=== PATIENT | male | born 1935 | race Caucasian/White ===

== ENCOUNTER 2017-12-02 09:17 | Outpatient (CLI) | payer MEDICARE, OTHER ==
[~2017-12-02] VITALS: Ht 182.9 cm; Wt 73.0 kg
[2017-12-02 09:27] VITALS: BP 146/67
[2017-12-02 10:13] LABS: BASOPHILS % (AUTO) 0 % (0-10); EOSINOPHILS # (AUTO) 0.1 10^3/uL (0.0-0.3); EOSINOPHILS % (AUTO) 1 % (0-10); HEMATOCRIT 43 % (40-54); HEMOGLOBIN 14.8 G/DL (13.3-17.7); LYMPHOCYTES # (AUTO) 1.5 X 10^3 (1.0-4.0); LYMPHOCYTES % (AUTO) 22 % (12-44); MEAN CORPUSCULAR HEMOGLOBIN 31 PG (25-34); MEAN CORPUSCULAR HGB CONC 35 G/DL (32-36); MEAN CORPUSCULAR VOLUME 88 FL (80-99); MEAN PLATELET VOLUME 9.6 FL (7.4-10.4); MONOCYTES # (AUTO) 0.6 X 10^3 (0.0-1.0); MONOCYTES % (AUTO) 9 % (0-12); NEUTROPHILS # (AUTO) 4.8 X 10^3 (1.8-7.8); NEUTROPHILS % (AUTO) 68 % (42-75); PLATELET COUNT 303 10^3/uL (130-400); RED BLOOD COUNT 4.84 10^6/uL (4.35-5.85); RED CELL DISTRIBUTION WIDTH 14.4 % (10.0-14.5)
[2017-12-02] MEDS ORDERED: MV M PO (11:57)
[2017-12-02] MEDS ORDERED: AMLO10TA6 PO (11:57)
[2017-12-02] MEDS ORDERED: WARF-48 PO (11:57)
[2017-12-02] MEDS ORDERED: SIMV10TA3 PO (11:57)
[2017-12-02] MEDS ORDERED: HYDR-3922 PO (11:57)
[2017-12-02] MEDS ORDERED: OXYC-464 PO (11:57)
[2017-12-02] MEDS ORDERED: CHOL500044 PO (11:57)
[2017-12-02] MEDS ORDERED: IBUP-1780 PO (11:57)
[2017-12-02] MEDS ORDERED: TIZA4TAB3 PO (11:57)
[2017-12-02] MEDS ORDERED: CLOP75TA69 PO (11:57)
[2017-12-02] MEDS ORDERED: GABA-488 PO (11:57)
[2017-12-02] MEDS ORDERED: RANI-515 PO (11:57)
== END 2017-12-02 10:05 | disposition home or self-care (01) ==
LOC: PREOP 09:17
PROVIDERS: ATTEND Orthopaedic Surgery
DX: Z01.812 Encounter for preprocedural laboratory examination (principal); Z11.2 Encounter for screening for other bacterial diseases; M48.061 Spinal stenosis, lumbar region without neurogenic claudication; Z22.322 Carrier or suspected carrier of Methicillin resistant Staphylococcus aureus
CPT/HCPCS: 36415; 85025; 86850; 86900; 86901; 87081

== ENCOUNTER 2017-12-08 07:36 | Inpatient (IN) | payer MEDICARE, OTHER ==
[~2017-12-08] VITALS: Ht 182.9 cm; Wt 73.0 kg
[~2017-12-08 07:36] MED LIST: AMLO10TA6 PO; CHOL500044 PO; CLOP75TA69 PO; GABA-488 PO; HYDR-3922 PO; IBUP-1780 PO; MV M PO; OXYC-464 PO; RANI-515 PO; SIMV10TA3 PO; TIZA4TAB3 PO; WARF-48 PO
[2017-12-08 07:40] VITALS: BP 167/71
[2017-12-08] MEDS ORDERED: ceFAZolin 2 GM IV Premixed 50 ML IV ONE (08:30)
[2017-12-08] MEDS: LACTATED RINGERS 1,000 ML IV PRN ×2 (08:46→11:12)
[2017-12-08] MEDS ORDERED: FAMOTIDINE 20MG/2ML IV (PEPCID) ONE (09:01)
[2017-12-08] MEDS ORDERED: FAMOTIDINE 20MG/2ML IV (PEPCID) IV ONE (09:15)
[2017-12-08] MEDS ORDERED: fentaNYL INJECTION 100 MCG/2 ML AMP ONE (09:18)
[2017-12-08] MEDS ORDERED: NS (IVPB) 50 ML ONE (09:29)
[2017-12-08] MEDS ORDERED: ONDANSETRON 4 MG/2 ML (SDV) Z0FRAN ONE (09:36)
[2017-12-08] MEDS ORDERED: LIDOCAINE PF 2% 2 ML (XYLOCAINE) VIAL ONE (09:36)
[2017-12-08] MEDS ORDERED: DEXMEDETOMIDINE 200 MCG/2 ML (PRECEDEX) VIAL IV ONE (09:36)
[2017-12-08] MEDS ORDERED: SEVOFLURANE (ULTANE) 15 ML INHAL SOLN ONE ×2 (09:36→13:36)
[2017-12-08] MEDS ORDERED: proPOfol 200 MG/20 ML (DIPRIVAN) VIAL IV ONE (09:36)
[2017-12-08] MEDS ORDERED: DEXAMETHASONE 10 MG/ML (DECADRON) 1 ML VIAL ONE (09:36)
[2017-12-08] MEDS ORDERED: NEO/POLY/BAC (NEOSPORIN) OINT 15 GM TUBE ONE (09:41)
[2017-12-08] MEDS ORDERED: BUP/EPI 0.5% 1:200,000 (SENSORCAINE) 30 ML VIAL ONE (09:41)
[2017-12-08] MEDS ORDERED: VANCOMYCIN 1000 MG/VIAL ONE (09:41)
[2017-12-08] MEDS ORDERED: ROCURONIUM 10 MG/ML 5 ML SYRINGE IV ONE (09:58)
[2017-12-08] MEDS ORDERED: GLYCOPYRROLATE 0.2 MG/ML (ROBINUL) 2 ML VIAL ONE ×3 (10:41→13:36)
[2017-12-08] MEDS ORDERED: BACITRACIN 100,000 UNIT/NS 1000 ML POUR BOTTLE IR ONE ×2 (10:45)
[2017-12-08] MEDS ORDERED: TRANEXAMIC ACID 100 MG/ML 10 ML INJECTION IV ONE (10:52)
[2017-12-08] MEDS ORDERED: NEOSTIGMINE 1 MG/ML 5 ML SYRINGE ONE (13:36)
[2017-12-08] MEDS ORDERED: CYCLOBENZAPRINE 10 MG (FLEXERIL) TAB PO PRN (13:45)
[2017-12-08] MEDS ORDERED: BISACODYL 10 MG SUPP (DULCOLAX) PR PRN (13:45)
[2017-12-08] MEDS ORDERED: METOCLOPRAMIDE 10 MG (REGLAN) TAB PO PRN (13:45)
[2017-12-08] MEDS ORDERED: METOCLOPRAMIDE INJ 10 MG/2 ML (REGLAN) IV PRN (13:45)
[2017-12-08] MEDS ORDERED: ONDANSETRON 4 MG/2 ML (SDV) Z0FRAN IV PRN (13:45)
[2017-12-08] MEDS ORDERED: BISACODYL 5 MG (DULCOLAX) TABLET PO PRN (13:45)
[2017-12-08] MEDS ORDERED: ACETAMINOPHEN 325 MG TABLET PO PRN (13:45)
[2017-12-08] MEDS ORDERED: morphine INJ 10 MG/ML 1ML (SYR OR VIAL) IVP ONE (14:00)
[2017-12-08] MEDS ORDERED: ONDANSETRON 4 MG/2 ML (SDV) Z0FRAN IVP PRN (14:00)
[2017-12-08] MEDS ORDERED: NS IV 1000 ML 1,000 ML ONE (15:05)
[2017-12-08] MEDS: NS IV 1000 ML 1,000 ML IV SCH (15:12)
[2017-12-08] MEDS: fentaNYL INJECTION 100 MCG/2 ML AMP IVP PRN ×2 (15:13→18:07)
--- NOTE | 2017-12-08 15:29 | OPERATIVE REPORT ---
DATE OF SERVICE: 12/08/2017 SURGEON: Filemon Scott DO ARCHITECTURAL REPRESENTATIVE: MATEUSZ Singh. This is a medically necessary procedure. Assistance was necessary for retraction of vital neurovascular structures. Without an assistant auditor, the procedure would not be possible. PREOPERATIVE DIAGNOSES: 1. Lumbar radiculopathy. 2. Lumbar spinal stenosis (peroneal, bony, subluxation). 3. Lumbar spondylolisthesis L2-3. 4. Adjacent segment disease. POSTOPERATIVE DIAGNOSES: 1. Lumbar radiculopathy. 2. Lumbar spinal stenosis (peroneal, bony, subluxation). 3. Lumbar spondylolisthesis L2-3. 4. Adjacent segment disease. PROCEDURE PERFORMED: 1. L2-3 direct lateral interbody lumbar fusion. 2. Application of titanium cage L2-3. 3. Application of posterior instrumentation L2 through L4 posterior spinal fusion L2-3. 4. Removal of hardware. 5. Exploration of fusion. 6. Complete left facetectomy. 7. Use of human Allograft for spine. 8. Use of local bone autograft. COMPLICATIONS: None. SPECIMEN SENT: None. DRAIN PLACED: Hemovac. ANESTHESIA: General endotracheal anesthesia with local anesthetic. ESTIMATED BLOOD LOSS: Minimal. HISTORY OF PRESENT ILLNESS: The patient is a very pleasant 82-year-old gentleman who presented to me with radiating left lower extremity pain. MRI demonstrated severe adjacent segment disease above and apparently fused, L3-L4, L4-L5. He did wish to proceed with operative intervention after failing conservative measures. DESCRIPTION OF PROCEDURE: The patient was identified by name on wrist band in the preoperative holding area. His operative site was signed, consent was signed. SCDs were placed. Neuromonitor was hooked up and antibiotics were started. He was taken to the operating theater and placed under general endotracheal tube anesthesia, transferred to the operating room table in the lateral position with the left side up and secured to the table and prepped and draped in a sterile fashion for a formal timeout. An incision was then made over the L2-3 disk space. I proceeded with standard lateral retroperitoneal approach to the spine documenting invasive tubular retractor to the midpoint of the L2-3 disk space. I the psoas muscles and performed an annulotomy and I then performed a complete diskectomy at L2-3. I sized and chose the appropriate titanium interbody cage packed with an allograft. I seated it in the midline position. At this point, I maintained hemostasis and I closed the wound in the usual layered fashion utilizing 0 Vicryl followed by 2-0 Vicryl, followed by running 3-0 subcuticular stitch. I applied dressings, awakened, placed the patient in the prone position on a radiolucent Akil table. I prepped and draped the patient in usual sterile fashion. I then made a midline incision over the old scar. I dissected my way through robust scar tissue, which made the process quite difficult to expose the existing hardware from L3, L4 and L5. I removed the set screws as well as the rods. I did reuse the set screws. I then placed pedicle screws bilaterally in L2. I tested with EMG neuromonitoring. The screws were in good position. I then replaced the rods with longer rods. I did an exploration of fusion and there was robust bone on the left and the right gutter indicating solid fusion. At this point, I performed a decompressive on the left at L2-3, I identified the exiting nerve root. I completely decompressed it. I decorticated the remaining posterior bony elements. I packed human allograft and local bone autograft in the left and the right gutter at L2-3 to promote posterior spinal fusion. I then placed a deep subfascial Hemovac drain. I irrigated the wound thoroughly, maintained hemostasis and I closed the wound utilizing 0 Vicryl followed by 2-0 Vicryls followed by coco for skin. I applied dressings and I took the patient to the PACU, awoke without incident. She tolerated the procedure well. I allowed the patient to back in PACU and sitting well. The plan at this time is to discontinue his drain and his Arzola catheter per my protocol. We will have the patient out of bed on postop day #1. Please note instrumentation utilized in this procedure was NuVasive for everything. Neuromonitoring was stable throughout. Job ID: [id number] DocumentID: [id number] Dictated Date: 12/08/2017 13:54:29 Machine Etcher Date: 12/08/2017 15:29:43 Dictated By: FILEMON SCOTT DO
--- NOTE | 2017-12-08 15:54 | Diagnostic Imaging Report ---
Indication: Fluoroscopy during a lumbar spine laminectomy surgery. Fluoroscopy was provided in the OR during lumbar spine surgery. 52 seconds of fluoroscopy was utilized. Images demonstrate postop changes of posterior instrumented fusion with vertical stabilization rods and pedicle screws. Impression: Fluoroscopy during lumbar posterior estimated fusion. Dictated by: Dictated on workstation # [id number]
[2017-12-08 16:08] VITALS: BP 119/57
[2017-12-08 17:14] VITALS: BP 126/58
[2017-12-08] MEDS: ceFAZolin INJECTION 1,000 MG in NS (IVPB) 50 ML IV SCH (18:04)
[2017-12-08] MEDS: oxyCODONE/APAP 5/325MG (PERCOCET 5) TABLET PO PRN (18:07)
[2017-12-08] MEDS ORDERED: LIDOCAINE UROJET 2% GEL 10 ML PKG ONE ×2 (19:26→22:55)
[2017-12-08] MEDS ORDERED: BETHANECHOL 25 MG (URECHOLINE) TAB PO NR (20:00)
[2017-12-08] MEDS ORDERED: TAMSULOSIN 0.4 MG (FLOMAX) CAP PO NR (20:00)
[2017-12-08] MEDS ORDERED: PHENAZOPYRIDINE 100 MG (PYRIDIUM) TABLET PO NR (20:00)
[2017-12-08] MEDS ORDERED: TAMSULOSIN 0.4 MG (FLOMAX) CAP PO ONE (20:02)
[2017-12-08 20:19] VITALS: BP 135/65
[2017-12-08] MEDS: FAMOTIDINE 20 MG (PEPCID) TABLET PO SCH (21:06)
[2017-12-09 00:30] VITALS: BP 148/71
[2017-12-09] MEDS: oxyCODONE/APAP 5/325MG (PERCOCET 5) TABLET PO PRN ×5 (00:52→23:48)
[2017-12-09] MEDS: ceFAZolin INJECTION 1,000 MG in NS (IVPB) 50 ML IV SCH ×2 (02:07→09:14)
[2017-12-09 04:00] VITALS: BP 170/76
[2017-12-09] MEDS: NS IV 1000 ML 1,000 ML IV SCH ×2 (05:05→18:23)
[2017-12-09] MEDS: BETHANECHOL 25 MG (URECHOLINE) TAB PO SCH ×3 (05:05→14:42)
--- NOTE | 2017-12-09 06:56 | Anesthesia-General Post-Op ---
General Patient Condition Mental Status/LOC: Same as Preop Cardiovascular: Satisfactory Nausea/Vomiting: Absent Respiratory: Satisfactory Pain: Controlled Complications: Absent Post Op Complications Complications None Follow Up Care/Instructions Patient Instructions None needed. Anesthesia/Patient Condition Patient Condition Patient is doing well, no complaints, stable vital signs, no apparent adverse anesthesia problems. No complications reported per nursing. D/C home per [facility] Criteria: ARIAN Barrientos CRNA Dec 09, 2017 06:56
[2017-12-09 07:04] LABS: MEAN PLATELET VOLUME 10.8 FL (7.4-10.4); RED BLOOD COUNT 4.14 10^6/uL (4.35-5.85); RED CELL DISTRIBUTION WIDTH 14.3 % (10.0-14.5); WHITE BLOOD COUNT 15.7 10^3/uL (4.3-11.0)
[2017-12-09 07:24] LABS: ALANINE AMINOTRANSFERASE 14 U/L (0-55); ALBUMIN 3.8 GM/DL (3.2-4.5); ALKALINE PHOSPHATASE 70 U/L (40-136); BILIRUBIN,TOTAL 0.5 MG/DL (0.1-1.0); BUN/CREATININE RATIO 18; CARBON DIOXIDE 20 MMOL/L (21-32); CHLORIDE 108 MMOL/L (98-107); CREATININE SERUM 0.89 MG/DL (0.60-1.30); GFR ESTIMATED > 60; GLUCOSE 114 MG/DL (70-105); POTASSIUM 3.9 MMOL/L (3.6-5.0); SODIUM 141 MMOL/L (135-145); TOTAL PROTEIN 6.5 GM/DL (6.4-8.2)
[2017-12-09 08:00] VITALS: BP 162/75
--- NOTE | 2017-12-09 08:24 | Consultation-Hospitalist ---
PALOMA CARBONE MEDICAL STUDENT 12/09/17 0824: HPI History of Present Illness: HPI/Chief Complaint CC: Back pain HPI: 82 year old male witha history of HTN, HLD, PVD, GERD, BPH, and spinal stenosis admitted following L2-L3 decompression and fusion. He developed his radiculopathy after stepping off a ledge in the dark in July. He had achy left left leg pain until a few weeks prior to current admission, when it resolved. He states his pain regimen controlled it. Since surgery, he has had only back pain which is achy, constant, and 8/10. The pain medication is not helping this. He has not had a BM since Friday. He is having difficulty urinating with only a small amount coming out when he tries to go, but this is a jail problem for him. He has eaten jello and tolerated it well. Source: patient Exam Limitations: no limitations Date Seen 12/09/17 Attending Physician Filemon Scott DO PCP No,Local Physician Referring Physician Filemon Scott DO Date of Admission Dec 08, 2017 at 07:36 Home Medications & Allergies Home Medications Reviewed patient Home Medication Reconciliation performed by pharmacy medication reconciliations gas technician and/or nursing. Patients Allergies have been reviewed. 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[employer]) Alcohol Use: Rarely Uses Number of Drinks Today: 0 Recreational Drug Use: No Smoking Status: Former Smoker Former Smoker, Quit: Mar 24, 2010 Physical Abuse Screen: No Sexual Abuse: No Recent Foreign Travel: No Contact w/other who traveled: No Recent Hopitalizations: No Recent Infectious Disease Expo: No Immunizations Up To Date Date of Pneumonia Vaccine: Dec 03, 2015 Seasonal Allergies Seasonal Allergies: No Past Medical History Surgeries: Orthopedic (Prior laminectomy and fusion at L3-L5), Vascular Surgery Carotid endarterectomy, Cardiac: High Cholesterol, Hypertension, Peripheral Vascular Genitourinary: Benign Prostatic Hyperpl Gastrointestinal: Gastroesophageal Reflux Musculoskeletal: Arthritis, Chronic Back Pain HEENT: Cataract, Macular Degeneration History of Blood Disorders: No Family History Alcoholism G8 BROTHER G8 SISTER Colon cancer G8 SISTER Completed stroke 19 FATHER G8 BROTHER Diabetes mellitus 19 MOTHER Fibrocystic disease of breast Hypertension 19 FATHER 19 MOTHER G8 BROTHER G8 SISTER Respiratory disorder G8 BROTHER (lung ca) Review of Systems Constitutional: weight loss (10 lb since July) EENTM: throat pain; No mouth pain, No nose congestion, No nose pain Respiratory: No cough, No short of breath Cardiovascular: No chest pain Gastrointestinal: No abdominal pain; constipation; No diarrhea, No nausea Genitourinary: frequency, hesitancy Musculoskeletal: back pain Skin: No rash Psychiatric/Neurological: No Symptoms Reported Physical Exam Physical Exam Vital Signs Vital Signs - First Documented 12/08/17 12/08/17 07:40 16:08 Temp 98.1 Pulse 59 Resp 16 B/P (MAP) 167/71 (103) Pulse Ox 93 O2 Delivery Room Air O2 Flow Rate 3.00 Capillary Refill : Height, Weight, BMI Height: 6'0.00" Weight: 161lbs. 0.0oz. [id number]; 21.8 BMI Method: General Appearance: No Apparent Distress, WD/WN HEENT: No Moist Mucous Membranes Respiratory: Chest Non Tender, Lungs Clear, Normal Breath Sounds Cardiovascular: Regular Rate, Rhythm, No Edema, No Murmur Gastrointestinal: Normal Bowel Sounds, Non Tender, Soft Neurologic/Psychiatric: Alert, Oriented x3 Skin: Normal Color, Warm/Dry Results Results/Procedures Labs Laboratory Tests 12/09/17 05:34 Patient resulted labs reviewed. Assessment/Plan Assessment and Plan Assess & Plan/Chief Complaint 82 year old male with history of HTN, HLD, PVD, GERD, BPH, and spinal stenosis s /p decompression and fusion of L2-L3. Pain control -Flexeril, Percocet, and Fentanyl PRN Constipation -Currently receiving bisacodyl -Will add miralax today BPH/Retention -Continue tamsulosin, bethanechol HTN -Will monitor and consider resuming MENTAL RETARDATION NURSE amlodipine HLD -Will consider resuming MENTAL RETARDATION NURSE simvastatin DVT PPx -SCDs Dipso: Per primary Clinical Quality Measures DVT/VTE Risk/Contraindication: Risk Factor Score Per Nursin RFS Level Per Nursing on Admit: 4+=Very High KARRIE REYNA DO 12/09/17 1120: HPI History of Present Illness: HPI/Chief Complaint Interviewed and examined patient PCP Alisha Liriano BM for 3 days so will start meds. 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[employer]) Past Medical History Surgeries: Orthopedic (Prior laminectomy and fusion at L3-L5), Vascular Surgery Cardiac: High Cholesterol, Hypertension, Peripheral Vascular Genitourinary: Benign Prostatic Hyperpl Gastrointestinal: Gastroesophageal Reflux Musculoskeletal: Arthritis, Chronic Back Pain HEENT: Cataract, Macular Degeneration Family History Alcoholism G8 BROTHER G8 SISTER Colon cancer G8 SISTER Completed stroke 19 FATHER G8 BROTHER Diabetes mellitus 19 MOTHER Fibrocystic disease of breast Hypertension 19 FATHER 19 MOTHER G8 BROTHER G8 SISTER Respiratory disorder G8 BROTHER (lung ca) Review of Systems Constitutional: see HPI, weakness EENTM: no symptoms reported Respiratory: no symptoms reported Cardiovascular: no symptoms reported Gastrointestinal: constipation Genitourinary: no symptoms reported Musculoskeletal: back pain Skin: no symptoms reported Psychiatric/Neurological: No Symptoms Reported Physical Exam Physical Exam General Appearance: No Apparent Distress, WD/WN, Chronically ill Eyes: Bilateral Eye Normal Inspection, Bilateral Eye PERRL HEENT: PERRL/EOMI, TMs Normal, Normal ENT Inspection, Pharynx Normal Neck: Full Range of Motion, Normal Inspection, Non Tender, Supple, Carotid Bruit Respiratory: Chest Non Tender, Lungs Clear, Normal Breath Sounds, No Accessory Muscle Use, No Respiratory Distress Cardiovascular: Regular Rate, Rhythm, No Edema, No Gallop, No JVD, No Murmur, Normal Peripheral Pulses Gastrointestinal: Normal Bowel Sounds, No Organomegaly, No Pulsatile Mass, Non Tender, Soft Back: Normal Inspection, No CVA Tenderness, No Vertebral Tenderness Extremity: Normal Capillary Refill, Normal Inspection, Normal Range of Motion, Non Tender, No Calf Tenderness, No Pedal Edema Neurologic/Psychiatric: Alert, Oriented x3, No Motor/Sensory Deficits, Normal Mood/Affect Skin: Normal Color, Warm/Dry Lymphatic: No Adenopathy Assessment/Plan Assessment and Plan Assess & Plan/Chief Complaint I personally have seen and evaluated the patient and performed the physical exam. I agree with the documented assessment and plan. Diagnosis/Problems Diagnosis/Problems (1) Lumbar stenosis Status: Chronic Qualifiers: Neurogenic claudication status: without neurogenic claudication Qualified Codes: M48.061 - Spinal stenosis, lumbar region without neurogenic claudication (2) Urinary retention Status: Chronic (3) Hypertension Status: Chronic Qualifiers: Hypertension type: essential hypertension Qualified Codes: I10 - Essential (primary) hypertension (4) Hyperlipidemia Status: Chronic Qualifiers: Hyperlipidemia type: mixed hyperlipidemia Qualified Codes: E78.2 - Mixed hyperlipidemia (5) Constipation Status: Acute Qualifiers: Constipation type: slow transit constipation Qualified Codes: K59.01 - Slow transit constipation (6) Leukocytosis Status: Acute Qualifiers: Leukocytosis type: leukemoid reaction Qualified Codes: D72.823 - Leukemoid reaction (7) PVD (peripheral vascular disease) Status: Chronic PALOMA CARBONE MEDICAL STUDENT Dec 09, 2017 08:24 KARRIE REYNA DO Dec 09, 2017 11:20
[2017-12-09] MEDS: PHENAZOPYRIDINE 100 MG (PYRIDIUM) TABLET PO SCH ×3 (09:14→18:23)
[2017-12-09] MEDS: FAMOTIDINE 20 MG (PEPCID) TABLET PO SCH (09:14)
--- NOTE | 2017-12-09 10:17 | Physical Therapy Evaluation ---
PT Evaluation-General Medical Diagnosis Admission Date Dec 08, 2017 at 07:36 Medical Diagnosis: stenosis Onset Date: Dec 08, 2017 Therapy Diagnosis Therapy Diagnosis: debility/weakness Height/Weight Height (Feet): 6 Height (Inches): 0.00 Weight (Pounds): 161 Weight (Ounces): 0.0 Precautions Precautions/Isolations: Standard Precautions Weight Bear Status Right Lower Extremity: Right Full Weight Bearing Left Lower Extremity: Left Full Weight Bearing Referral Physician: Tyler Reason for Referral: Evaluation/Treatment Medical History Additional Medical History unremarkable/s/[place] injury per patient report. Current History s/p L2-3 laminectomy with fusion Reviewed History: Yes Social History Home: Single Level Current Living Status: Spouse Prior/Core FIM Prior Level of Function Functional [place] Measure 0=Not Assessed/NA 4=Minimal Assistance 1=Total Assistance 5=Supervision or Setup 2=Maximal Assistance 6=Modified [place] 3=Moderate Assistance 7=Complete [place] Bed Mobility: 7 Transfers (B,C,W/C) (FIM): 7 Gait: 7 Locomotion: 7 camps, fishes, etc PT Evaluation-Current Subjective Patient agrees to PT. Pain Numeric Pain Scale: 5-Moderate Pain Location: Lower Location Body Site: Back Pain Description: Acute Objective Patient Orientation: Normal For Age Problem Solving: Good Comprehension: 7 Expression: 7 Social Interaction: 7 Problem Solvin Memory: 7 Attachments: IV ROM/Strength ROM Lower Extremities bilateral LE WFL Strength Lower Extremities 4+/5 grossly bilaterally Integumentary/Posture Integumentary drain in lumbar region/incision Bowel Incontinence: No Bladder Incontinence: No Posture WFL Neuromuscular (Tone, Coordination, Reflexes) grossly intact Sensory Vision: Wears Glasses Hearing: Functional Sensation Right Lower Extremit: Intact Sensation Left Lower Extremity: Intact Transfers Functional [place] Measure 0=Not Assessed/NA 4=Minimal Assistance 1=Total Assistance 5=Supervision or Setup 2=Maximal Assistance 6=Modified [place] 3=Moderate Assistance 7=Complete [place] Transfers (B, C, W/C) (FIM): 6 Scootin Rollin Supine to/from Sit: 6 Sit to/from Stand: 6 limited by pain Gait Mode of Locomotion: Walk Anticipated Mode of Locomotion: Walk Gait (FIM): 6 Distance (FIM): 3=150 ft Distance: 300' Gait Level of Assist: 6 Gait Assistive Device: FWW Comments/Gait Description slow, safe and functional Balance Sitting Static: Normal Sitting Dynamic: Normal Standing Static: Normal Standing Dynamic: Normal Assessment/Needs 82 y.o. active male, will be seen short term by skilled PT to address functional mobility to ensure safe return to home. Patient is limited by back pain/discomfort. Patient dons back brace with set up and with education. Rehab Potential: Good PT Short Term Goals Short Term Goals Time Frame: Dec 13, 2017 Transfers (B,C,W/C) (FIM): 6 Gait (FIM): 6 Gait Level of Assist: 6 Gait Assistive Device: None, FWW PT Plan Treatment/Plan Treatment Plan: Continue Plan of Care Treatment Plan: Bed Mobility, Education, Functional Activity Michi, Functional Strength, Gait, Safety, Therapeutic Exercise Treatment Duration: Dec 13, 2017 Frequency: BID until patient is detached from IV Estimated Hrs Per Day: .5 hour per day Patient and/or Family Agrees t: Yes Discharge Recommendations Therapy D/C Recommendations: Home w/ Family Support Time/GCodes Time In: 855 Time Out: 912 Total Billed Treatment Time: 17 Total Billed Treatment 1 visit [facility] 17 min G Codes Necessary: BROOK Peñaloza PT Dec 09, 2017 10:17
[2017-12-09] MEDS: DOCUSATE SODIUM 100 MG (COLACE) CAP PO SCH ×2 (11:09→21:18)
[2017-12-09] MEDS: SENNA W/DOCUSATE (SENOKOT S) TABLET PO SCH ×2 (11:09→21:19)
[2017-12-09] MEDS: LACTULOSE SYRUP 10GM/15ML (ENULOSE) 30ML UDC PO SCH ×2 (11:10→21:18)
[2017-12-09] MEDS: POLYETHYLENE GLYCOL 17 GM (MIRALAX) PACK PO SCH ×2 (11:10→21:18)
[2017-12-09] MEDS ORDERED: TRAM50TA2 PO (11:12)
[2017-12-09] MEDS ORDERED: WARF5TAB8 PO ×2 (11:12)
[2017-12-09] MEDS ORDERED: CLOP75TA28 PO (11:12)
[2017-12-09] MEDS ORDERED: TIZA4CAP8 PO (11:12)
[2017-12-09] MEDS ORDERED: VIT1CAPS9 PO (11:12)
[2017-12-09 12:00] VITALS: BP 168/72
--- NOTE | 2017-12-09 12:18 | Diagnostic Imaging Report ---
EXAMINATION: Lumbar spine at 9:16 a.m. INDICATION: Postop. TECHNIQUE: AP and lateral views were obtained. FINDINGS: The fluoroscopic exam performed on 12/08/2017 noted bilateral pedicle screws in place at L2, L3, L4, and L5. There are also interconnecting rods and a transverse connecting device at the L2-L3 level. An interbody device at L2-L3 was seen as well. Those findings are again evident on this study and do not seem to have changed significantly. There is now a row of skin coco along the posterior aspect of the lumbar spine. There is also a radiopaque drain evident. There is no fracture or acute bony abnormality appreciated. IMPRESSION: The postsurgical changes seen on the previous exam appear stable. There is no acute abnormality evident. Dictated by: Dictated on workstation # [id number]
--- NOTE | 2017-12-09 14:20 | Physical Therapy Daily Note ---
PT Daily Note-Current Subjective Patient agrees to PT. Pain Numeric Pain Scale: 5-Moderate Pain Location: Lower Location Body Site: Back Pain Description: Acute Mental Status Patient Orientation: Normal For Age Attachments: IV Transfers Functional [place] Measure 0=Not Assessed/NA 4=Minimal Assistance 1=Total Assistance 5=Supervision or Setup 2=Maximal Assistance 6=Modified [place] 3=Moderate Assistance 7=Complete IndependenceIRFPAI Quality Coding Scale 6 Independent with activity with or without an assistive device 5 Patient requires set up or clean up by helper. Patient completes activity by themselves 4 Supervision or touching assist (CGA). [place] provide cues , steadying assist 3 The helper provides less than half the effort to complete the activity 2 The helper provides more than half the effort to complete the activity 1 Dependent. The helper does all the effort to complete an activity 7 Patient refused to complete or attempt activity 9 The patient did not perform the activity before the current illness or injury 88 Not attempted due to Medical conditions or safety concerns Transfers (B, C, W/C) (FIM): 6 Scootin Rollin Supine to/from Sit: 6 Sit to/from Stand: 6 bed flat with barrel roll technique Weight Bearing Right Lower Extremity: Right Full Weight Bearing Left Lower Extremity: Left Full Weight Bearing Gait Training Gait (FIM): 6 Distance (FIM): 3=150 ft Distance: >500' Gait Level of Assist: 6 Gait Assistive Device: FWW safe and functional Assessment Patient dons back brace independently without difficulty. Education with patient's family on donning brace. Patient progressing with treatment plan. PT Short Term Goals Short Term Goals Time Frame: Dec 13, 2017 Transfers (B,C,W/C) (FIM): 6 Gait (FIM): 6 Gait Level of Assist: 6 Gait Assistive Device: None, FWW PT Plan Treatment/Plan Treatment Plan: Continue Plan of Care Treatment Plan: Bed Mobility, Education, Functional Activity Michi, Functional Strength, Gait, Safety, Therapeutic Exercise Treatment Duration: Dec 13, 2017 Frequency: BID until patient is detached from IV Estimated Hrs Per Day: .5 hour per day Patient and/or Family Agrees t: Yes Time/GCodes Time In: 1327 Time Out: 1343 Total Billed Treatment Time: 16 Total Billed Treatment 1 visit FA 16 min BROOK LISA PT Dec 09, 2017 14:20
[2017-12-09 15:43] VITALS: BP 152/58
--- NOTE | 2017-12-09 16:35 | Progress Note (SOAP) ---
Subjective Date Seen by a Provider: Dec 09, 2017 Time Seen by a Provider: 16:34 Subjective/Events-last exam SOBIA. Doing very well. Jenny PO. Pain is minimal. Denies leg pain. Wants to go home tomorrow. Objective Exam Vital Signs Date Time Temp Pulse Resp B/P (MAP) Pulse Ox O2 Delivery O2 Flow Rate FiO2 12/09/17 15:43 97.2 68 20 152/58 (89) 93 Room Air 12/09/17 12:00 98.9 92 20 168/72 (104) 92 Nasal Cannula 3.00 12/09/17 09:00 Room Air 12/09/17 08:00 98.7 97 20 162/75 (104) 90 Nasal Cannula 3.00 12/09/17 04:00 98.1 91 18 170/76 (107) 92 Nasal Cannula 3.00 12/09/17 00:30 98.0 101 22 148/71 (96) 92 Nasal Cannula 3.00 12/08/17 21:00 Room Air 12/08/17 20:52 Room Air 12/08/17 20:19 96.0 88 16 135/65 (88) 93 Room Air 12/08/17 17:14 96.9 66 20 126/58 (80) 95 Nasal Cannula 3.00 12/08/17 17:06 93 Nasal Cannula 3.00 I & O 12/09/17 07:00 Intake Total 4035 ml Output Total 640 ml Balance 3395 ml Capillary Refill : General Appearance: No Apparent Distress Extremity: Other (5/5 motor erin LE including hip flexion, SILT all dermatome, drain in place, dressing CDI) Results Lab Laboratory Tests 12/09/17 05:34: White Blood Count 15.7H, Red Blood Count 4.14L, Hemoglobin 13.0L, Hematocrit 38L , Mean Corpuscular Volume 91, Mean Corpuscular Hemoglobin 31, Mean Corpuscular Hemoglobin Concent 35, Red Cell Distribution Width 14.3, Platelet Count 248, Mean Platelet Volume 10.8H, Sodium Level 141, Potassium Level 3.9, Chloride Level 108H, Carbon Dioxide Level 20L, Anion Gap 13, Blood Urea Nitrogen 16, Creatinine 0.89, Estimat Glomerular Filtration Rate > 60, BUN/Creatinine Ratio 18, Glucose Level 114H, Calcium Level 9.0, Corrected Calcium 9.2, Total Bilirubin 0.5, Aspartate Amino Transf (AST/SGOT) 20, Alanine Aminotransferase ( ALT/SGPT) 14, Alkaline Phosphatase 70, Total Protein 6.5, Albumin 3.8 Assessment/Plan Assessment/Plan Assess & Plan/Chief Complaint s/p DLIF extension PSIF PLAN: d/c drain when less than 60 cc/shift regular diet scd prophylaxis plan to d/c home friday Clinical Quality Measures DVT/VTE Risk/Contraindication: Risk Factor Score Per Nursin RFS Level Per Nursing on Admit: 4+=Very High JESUSITA LOYA DO Dec 09, 2017 16:35
--- NOTE | 2017-12-09 16:41 | CONSULTATION REPORT ---
DATE OF SERVICE: 12/09/2017 ATTENDING PHYSICIAN: Dr. Beltran. SUMMARY: An 82-year-old white man recovering from back surgery had some problem passing urine. Several attempts of catheterization were unsuccessful by the nursing staff and then the patient finally voided on his own relatively emptying well. Many years ago had a microwave therapy by Dr. Nowak. He is not taking any medicine for his prostate. ALLERGIES: He has no known drug allergies. PAST MEDICAL HISTORY: He has history of osteoarthritis, peripheral vascular disease, hypercholesterolemia, hypertension, BPH, gastroesophageal reflux disease, osteoarthritis, degenerative joint disease, cataracts and macular degeneration. FAMILY HISTORY: Noncontributory. MEDICATIONS: Per computer list. PHYSICAL EXAMINATION: GENERAL: Well-nourished, well-developed, in no acute distress. HEAD: Normocephalic. ENT: Unremarkable. NECK: Supple. CHEST: Clear. HEART: Regular rate and rhythm, no murmur. ABDOMEN: Soft. EXTREMITIES: Lower extremity, no edema or cyanosis. NEUROLOGIC: Grossly intact. Oriented x3. SKIN: Warm and dry. EXAMINATION OF THE GENITALIA: Normal adequate external genitalia. RECTAL: Deferred. IMPRESSION: 1. Urinary retention secondary to benign prostatic hypertrophy and some neurogenic element. 2. as per above. PLAN: We will resume his Flomax 0.4 mg daily and start him on Proscar 5 mg daily, and would manage according to his response. Later on, he may need at the office a workup to study his prostate. The plan was fully explained to him and his . Job ID: [id number] DocumentID: [id number] Dictated Date: 12/09/2017 14:21:00 Lithographed Plate Inspector Date: 12/09/2017 16:40:27 Dictated By: RUSSELL CHAN MD
[2017-12-09] MEDS ORDERED: TAMSULOSIN 0.4 MG (FLOMAX) CAP PO SCH (18:00)
[2017-12-09] MEDS: TAMSULOSIN 0.4 MG (FLOMAX) CAP PO SCH (18:25)
[2017-12-09 19:45] VITALS: BP 158/92
[2017-12-10] VITALS (7 sets, daily range): BP systolic 137–172; BP diastolic 61–78
--- NOTE | 2017-12-10 04:51 | Progress Note (SOAP) ---
Subjective Date Seen by a Provider: Dec 10, 2017 Time Seen by a Provider: 04:47 Subjective/Events-last exam POD #2, s/p L2-3 DLIF, PSF VSS, afebrile complains of abdominal distention Urinary retention improving Denies lower extremity pain Review of Systems General: No Chills Pulmonary: No Cough Gastrointestinal: Constipation; No: Nausea, Vomiting, Abdominal Pain Genitourinary: Retention Musculoskeletal: back pain; No: leg pain Neurological: No: Weakness Objective Exam Vital Signs Date Time Temp Pulse Resp B/P (MAP) Pulse Ox O2 Delivery O2 Flow Rate FiO2 12/10/17 04:00 98.7 96 18 164/75 (104) 96 Room Air 12/10/17 00:00 98.1 84 20 166/74 (104) 92 Room Air 12/09/17 21:00 Room Air 12/09/17 19:45 98.0 82 18 158/92 (114) 92 Room Air 12/09/17 15:43 97.2 68 20 152/58 (89) 93 Room Air 12/09/17 12:00 98.9 92 20 168/72 (104) 92 Nasal Cannula 3.00 12/09/17 09:00 Room Air 12/09/17 08:00 98.7 97 20 162/75 (104) 90 Nasal Cannula 3.00 I & O 12/10/17 07:00 Intake Total 1500 ml Output Total 1385 ml Balance 115 ml Capillary Refill : General Appearance: No Apparent Distress Respiratory: No Accessory Muscle Use, No Respiratory Distress Cardiovascular: Normal Peripheral Pulses Gastrointestinal: normal bowel sounds, non tender, soft, distended, other (No Flynn-Boone's or Jonah's sign) Extremity: Non Tender, No Calf Tenderness Neurologic/Psychiatric: Alert, Oriented x3, No Motor/Sensory Deficits, Normal Mood/Affect, 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 Norm as Tested Skin: Normal Color, Other (Dressing CDI) Results Lab Laboratory Tests 12/09/17 05:34: White Blood Count 15.7H, Red Blood Count 4.14L, Hemoglobin 13.0L, Hematocrit 38L , Mean Corpuscular Volume 91, Mean Corpuscular Hemoglobin 31, Mean Corpuscular Hemoglobin Concent 35, Red Cell Distribution Width 14.3, Platelet Count 248, Mean Platelet Volume 10.8H, Sodium Level 141, Potassium Level 3.9, Chloride Level 108H, Carbon Dioxide Level 20L, Anion Gap 13, Blood Urea Nitrogen 16, Creatinine 0.89, Estimat Glomerular Filtration Rate > 60, BUN/Creatinine Ratio 18, Glucose Level 114H, Calcium Level 9.0, Corrected Calcium 9.2, Total Bilirubin 0.5, Aspartate Amino Transf (AST/SGOT) 20, Alanine Aminotransferase ( ALT/SGPT) 14, Alkaline Phosphatase 70, Total Protein 6.5, Albumin 3.8 Assessment/Plan Assessment/Plan Assess & Plan/Chief Complaint Lumbar stenosis with Radiculopathy S/P L2-3 DLIF, PSF with laminectomy Will continue to monitor bowel activity. If no BM by noon, we will obtain a KUB. Patient has good bowel sounds, and is not experiencing nausea Likely discharge home tomorrow. Clinical Quality Measures DVT/VTE Risk/Contraindication: Risk Factor Score Per Nursin RFS Level Per Nursing on Admit: 4+=Very High ROLDAN DUQUE Dec 10, 2017 04:51
[2017-12-10] MEDS: VITAMIN D3 5,000 UNITS (CHOLECALCIFEROL ) CAPSULE PO SCH (04:59)
[2017-12-10] MEDS: BETHANECHOL 25 MG (URECHOLINE) TAB PO SCH ×3 (04:59→17:20)
--- NOTE | 2017-12-10 07:57 | Progress Note-Hospitalist ---
PALOMA CARBONE MEDICAL STUDENT 12/10/17 0757: Subjective HPI/CC On Admission Date Seen by Provider: Dec 10, 2017 Time Seen by Provider: 07:15 Interviewed and examined patient PCP Alisha Renteria No BM for 3 days so will start meds. Subjective/Events-last exam Pt had no acute events overnight. Drain was removed last night. Main concern this morning is that he has not had a BM. He is passing only a small amount of gas. Has nausea related to constipation and 6/10 lower abdominal pain. 5/10 back pain. Docusate, Senna, Colace, and Miralax have not produced a BM. Urinating better after adding proscar. He is ambulating to and from the bathroom. Used IS 6-7 times yesterday. Focused Exam Respiratory: Chest Non Tender, No Accessory Muscle Use, No Respiratory Distress , Crackles (Few crackles at lung bases) Cardiovascular: Regular Rate, Rhythm, No Murmur Skin: normal color, warm/dry Objective Exam Vital Signs Vital Signs Date Time Temp Pulse Resp B/P (MAP) Pulse Ox O2 Delivery O2 Flow Rate FiO2 12/10/17 04:00 98.7 96 18 164/75 (104) 96 Room Air 12/09/17 12:00 3.00 Capillary Refill : General Appearance: No Apparent Distress, WD/WN Gastrointestinal: Abnormal Bowel Sounds (Hypoactive), Distended, Tenderness ( Diffuse) Results/Procedures Lab Patient resulted labs reviewed. Assessment/Plan Assessment and Plan Assess & Plan/Chief Complaint 82 year old male with history of HTN, HLD, PVD, GERD, BPH, and spinal stenosis s /p decompression and fusion of L2-L3. Pain control -Flexeril, Percocet, and Fentanyl PRN Constipation -Currently receiving bisacodyl, colace, senna -Has had miralax -Will discuss obtaining a KUB and using an enema if KUB is unremarkable BPH/Retention -Continue tamsulosin, bethanechol, Proscar -Follow up with Dr. 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 + BS noted Review of Systems General: Fatigue Objective Exam General Appearance: No Apparent Distress, WD/WN, Chronically ill Respiratory: Chest Non Tender, Lungs Clear, Normal Breath Sounds, No Accessory Muscle Use, No Respiratory Distress Cardiovascular: Regular Rate, Rhythm, No Edema, No Gallop, No JVD, No Murmur, Normal Peripheral Pulses Gastrointestinal: Abnormal Bowel Sounds (Hypoactive), Distended Assessment/Plan Assessment and Plan Assess & Plan/Chief Complaint Post op ileus management Enemas Reglan Gentle IVF Appreciate Dr Wong consultation Supervisory Addendum Participated in pt care: history Personally performed: exam E&M service: agree Results interpretation: agree Notes: I personally have seen and evaluated the patient and performed the physical exam. I agree with the documented assessment and plan. Diagnosis/Problems Diagnosis/Problems (1) Ileus Status: Acute (2) Hypertension Status: Chronic Qualifiers: Hypertension type: essential hypertension Qualified Codes: I10 - Essential (primary) hypertension (3) PVD (peripheral vascular disease) Status: Chronic (4) Leukocytosis Status: Acute Qualifiers: Leukocytosis type: leukemoid reaction Qualified Codes: D72.823 - Leukemoid reaction (5) Hyperlipidemia Status: Chronic Qualifiers: Hyperlipidemia type: mixed hyperlipidemia Qualified Codes: E78.2 - Mixed hyperlipidemia (6) Urinary retention Status: Chronic (7) Constipation Status: Acute Qualifiers: Constipation type: slow transit constipation Qualified Codes: K59.01 - Slow transit constipation (8) Lumbar stenosis Status: Chronic Qualifiers: Neurogenic claudication status: without neurogenic claudication Qualified Codes: M48.061 - Spinal stenosis, lumbar region without neurogenic claudication PALOMA CAR[employer] MEDICAL STUDENT Dec 10, 2017 07:57 KARRIE REYNA DO Dec 10, 2017 09:59
[2017-12-10] MEDS: FINASTERIDE (PROSCAR) 5 MG TAB PO SCH (08:49)
[2017-12-10] MEDS: amLODIPine 10 MG (NORVASC) TAB PO SCH (08:49)
[2017-12-10] MEDS: oxyCODONE/APAP 5/325MG (PERCOCET 5) TABLET PO PRN ×3 (08:49→19:54)
[2017-12-10] MEDS: FAMOTIDINE 20 MG (PEPCID) TABLET PO SCH (08:49)
[2017-12-10] MEDS: PHENAZOPYRIDINE 100 MG (PYRIDIUM) TABLET PO SCH ×3 (08:49→17:23)
[2017-12-10] MEDS ORDERED: BISACODYL 10 MG SUPP (DULCOLAX) PR NR (09:15)
--- NOTE | 2017-12-10 09:21 | Physical Therapy Daily Note ---
PT Daily Note-Current Subjective Pt standing in room holding onto IV pole awaiting PT upon arrival. Pt agrees to PT for walk. Pain Numeric Pain Scale: 8 Location: Incisional, Dorsal Location Body Site: Back Pain Description: Ache, Tightness Mental Status Patient Orientation: Person, Place, Time, Situation Attachments: IV Transfers Functional Mobile Measure 0=Not Assessed/NA 4=Minimal Assistance 1=Total Assistance 5=Supervision or Setup 2=Maximal Assistance 6=Modified Mobile 3=Moderate Assistance 7=Complete IndependenceIRFPAI Quality Coding Scale 6 Independent with activity with or without an assistive device 5 Patient requires set up or clean up by helper. Patient completes activity by themselves 4 Supervision or touching assist (CGA). [place] provide cues , steadying assist 3 The helper provides less than half the effort to complete the activity 2 The helper provides more than half the effort to complete the activity 1 Dependent. The helper does all the effort to complete an activity 7 Patient refused to complete or attempt activity 9 The patient did not perform the activity before the current illness or injury 88 Not attempted due to Medical conditions or safety concerns Scootin Supine to/from Sit: 6 Sit to/from Stand: 6 Weight Bearing Right Lower Extremity: Right Full Weight Bearing Left Lower Extremity: Left Full Weight Bearing Gait Training Distance (FIM): 3=150 ft Distance: 300' Gait Level of Assist: 6 Gait Persons Needed: 1 Gait Assistive Device: FWW Pt walks with slight antalgic gait pattern. Pt only needs assistance managing IV pole. Treatments Pt ambulates in hallway using FWW at Mod I. Pt returns to room to transfer to Supine in bed. Pt needs assistance to scoot/reposition in bed. Pt has all needs met at end of tx. Assessment Current Status: Good Progress Pt fatigues due to discomfort/pain in back. Nurse gave pain med shortly before NEONATAL INTENSIVE CARE NURSE arrived, just hadn't started working yet. PT Short Term Goals Short Term Goals Time Frame: Dec 13, 2017 Transfers (B,C,W/C) (FIM): 6 Gait (FIM): 6 Gait Level of Assist: 6 Gait Assistive Device: None, FWW PT Plan Problem List Problem List: Activity Tolerance, Gait Treatment/Plan Treatment Plan: Continue Plan of Care Treatment Plan: Bed Mobility, Education, Functional Activity Michi, Functional Strength, Gait, Safety, Therapeutic Exercise Treatment Duration: Dec 13, 2017 Frequency: BID until patient is detached from IV Estimated Hrs Per Day: .5 hour per day Patient and/or Family Agrees t: Yes Safety Risks/Education Patient Education: Correct Positioning, Safety Issues Teaching Recipient: Patient Teaching Methods: Discussion Response to Teaching: Verbalize Understanding Time/GCodes Time In: 901 Time Out: 911 Total Billed Treatment Time: 10 Total Billed Treatment 1, GT (10m) G Codes Necessary: TORIE Lovett PTA Dec 10, 2017 09:21
[2017-12-10] MEDS: NS IV 1000 ML 1,000 ML IV SCH (10:08)
[2017-12-10] MEDS: LACTULOSE SYRUP 10GM/15ML (ENULOSE) 30ML UDC PO SCH ×2 (10:13→20:18)
[2017-12-10] MEDS: SENNA W/DOCUSATE (SENOKOT S) TABLET PO SCH ×2 (10:13→20:19)
[2017-12-10] MEDS: DOCUSATE SODIUM 100 MG (COLACE) CAP PO SCH ×2 (10:13→20:19)
[2017-12-10] MEDS: POLYETHYLENE GLYCOL 17 GM (MIRALAX) PACK PO SCH ×2 (10:13→20:19)
[2017-12-10] MEDS: METOCLOPRAMIDE INJ 10 MG/2 ML (REGLAN) IV SCH ×3 (10:14→20:19)
--- NOTE | 2017-12-10 14:10 | Diagnostic Imaging Report ---
INDICATION: No bowel movement since back surgery 2 days ago.. TECHNIQUE: Supine and upright view of the abdomen 12:06 PM CORRELATION STUDY: 12/09/2017 FINDINGS: Posterior fusion hardware decompressive laminectomies is again demonstrated. This includes transpedicular screws and connecting rods at L2-L3, L4-5 levels. Overlying skin coco are present. Findings compatible with endovascular stents within the expected location of the iliac arteries. There is moderate severity fecal retention. Slight disproportionate proximal colon fecal loading is noted. Definitive large fecal impaction however is not otherwise suggested. A few gas filled loops of bowel are noted without evidence to suggest high degree bowel obstruction. IMPRESSION: 1. Moderate severity fecal retention with evidence for large fecal impaction or otherwise bowel obstruction. Dictated by: Dictated on workstation # [id number]
--- NOTE | 2017-12-10 14:31 | Physical Therapy Daily Note ---
PT Daily Note-Current Subjective Pt is laying Supine in bed upon arrival. Pt agrees to PT for afternoon walk. Pain Numeric Pain Scale: 6 Location: Dorsal Location Body Site: Back Pain Description: Ache, Sharp Comment: Pain is achy with intermittent points of sharp pain. Mental Status Patient Orientation: Person, Place, Time, Situation Transfers Functional [place] Measure 0=Not Assessed/NA 4=Minimal Assistance 1=Total Assistance 5=Supervision or Setup 2=Maximal Assistance 6=Modified [place] 3=Moderate Assistance 7=Complete IndependenceIRFPAI Quality Coding Scale 6 Independent with activity with or without an assistive device 5 Patient requires set up or clean up by helper. Patient completes activity by themselves 4 Supervision or touching assist (CGA). [place] provide cues , steadying assist 3 The helper provides less than half the effort to complete the activity 2 The helper provides more than half the effort to complete the activity 1 Dependent. The helper does all the effort to complete an activity 7 Patient refused to complete or attempt activity 9 The patient did not perform the activity before the current illness or injury 88 Not attempted due to Medical conditions or safety concerns Scootin Rollin Supine to/from Sit: 6 Sit to/from Stand: 6 Weight Bearing Right Lower Extremity: Right Full Weight Bearing Left Lower Extremity: Left Full Weight Bearing Gait Training Distance (FIM): 3=150 ft Distance: 400' Gait Level of Assist: 6 Gait Persons Needed: 1 Gait Assistive Device: FWW Pt's walking is improved and pt reports less pain while walking since taking pain med approx. 1 hr before. Treatments Pt transfers from bed to standing using FWW at Mod I. Pt ambulates in hallway using FWW at Mod I then returns to room to rest Supine in bed. Pt has all needs met at end of tx. Assessment Current Status: Good Progress When pain med is given before tx (enough time to work), pt is able to ambulate easier and more pain free. PT Short Term Goals Short Term Goals Time Frame: Dec 13, 2017 Transfers (B,C,W/C) (FIM): 6 Gait (FIM): 6 Gait Level of Assist: 6 Gait Assistive Device: None, FWW PT Plan Problem List Problem List: Activity Tolerance, Functional Strength Treatment/Plan Treatment Plan: Continue Plan of Care Treatment Plan: Bed Mobility, Education, Functional Activity Michi, Functional Strength, Gait, Safety, Therapeutic Exercise Treatment Duration: Dec 13, 2017 Frequency: BID until patient is detached from IV Estimated Hrs Per Day: .5 hour per day Patient and/or Family Agrees t: Yes Safety Risks/Education Patient Education: Gait Training, Transfer Techniques, Correct Positioning, Reviewed Don/Doff Brace, Disease Process, Safety Issues Teaching Recipient: Patient Teaching Methods: Discussion Response to Teaching: Verbalize Understanding Time/GCodes Time In: 1400 Time Out: 1412 Total Billed Treatment Time: 12 Total Billed Treatment 1, GT (12m) G Codes Necessary: TORIE Lovett PTA Dec 10, 2017 14:31
--- NOTE | 2017-12-10 17:16 | Consultation ---
History of Present Illness History of Present Illness Patient Consulted On(krissy/time) 12/10/17 17:10 Time Seen by Provider: 16:54 History of Present Illness Surgery asked to consult regarding Constipation and fecal retention. HPI: pt is an 82yo male who underwent back surgery on Friday, he has not had a BM since Friday. Pt has not had flatus either. When I spoke to pt he thinks his abdomen has improved back to normal. He finally got an enema and had "a fair amount of output", according to the nurse. He states he had one more very small BM, but still no flatus. He denies abdominal pain, was having some urinary retention but that is also improving. He also had a KUB that showed a moderate-large amount of fecal retention. Allergies and Home Medications Allergies Coded Allergies: No Known Drug Allergies (Unverified , 12/02/17) Home Medications Amlodipine Besylate 10 Mg Tablet, 10 MG PO DAILY, (Reported) Cholecalciferol (Vitamin D3) 5,000 Unit Tablet, 5,000 UNIT PO DAILY, (Reported) Clopidogrel Bisulfate 75 Mg Tablet, 75 MG PO DAILY, (Reported) Gabapentin 300 Mg Capsule, 300 MG PO TID PRN for SPASMS, (Reported) Hydralazine HCl 10 Mg Tablet, 10 MG PO DAILY, (Reported) Ibuprofen 800 Mg Tablet, 800 MG PO Q8H PRN for PAIN-MILD, (Reported) Oxycodone HCl/Acetaminophen 1 Each Tablet, 1-2 TAB PO Q6H PRN for PAIN-MODERATE, (Reported) Ranitidine HCl 150 Mg Tablet, 150 MG PO DAILY, (Reported) Simvastatin 10 Mg Tablet, 10 MG PO DAILY, (Reported) Tizanidine HCl 4 Mg Capsule, 4 MG PO Q8H PRN for MUSCLE SPASMS, (Reported) Tramadol HCl 50 Mg Tablet, 50-100 MG PO Q8H PRN for PAIN-MODERATE, (Reported) Vit C/Vit E/Lutein/Min/[place]-3 1 Each Capsule, 1 CAP PO DAILY, (Reported) Warfarin Sodium 5 Mg Tablet, 5 MG PO MoTuWeThFr, (Reported) Warfarin Sodium 5 Mg Tablet, 2.5 MG PO SuSa, (Reported) TAKES 1/2 (5MG) TABLET Patient Home Medication List Home Medication List Reviewed: Yes Past Yvudabu-Clhchn-Hupxvb Hx Patient Social History Alcohol Use: Rarely Uses Number of Drinks Today: 0 Recreational Drug Use: No Smoking Status: Former Smoker Former Smoker, Quit: Mar 24, 2010 Recent Foreign Travel: No Contact w/Someone Who Travel: No Recent Infectious Disease Expo: No Recent Hopitalizations: No Physical Abuse Screen: No Sexual Abuse: No Immunizations Up To Date Date of Pneumonia Vaccine: Dec 03, 2015 Seasonal Allergies Seasonal Allergies: No Surgeries History of Surgeries: Yes (knee scope, back, stents in both les, artery sx in neck) Surgeries: Orthopedic (Prior laminectomy and fusion at L3-L5), Vascular Surgery Respiratory History of Respiratory Disorde: No Cardiovascular History of Cardiac Disorders: Yes (STENTS PLACED FOR PVD APPROX 2014) Cardiac Disorders: High Cholesterol, Hypertension, Peripheral Vascular Neurological History of Neurological Disord: Yes Genitourinary History of Genitourinary Disor: No Genitourinary Disorders: Benign Prostatic Hyperpl Gastrointestinal History of Gastrointestinal Di: Yes Gastrointestinal Disorders: Gastroesophageal Reflux Musculoskeletal History of Musculoskeletal Dis: Yes (stenosis) Musculoskeletal Disorders: Arthritis, Chronic Back Pain Endocrine History of Endocrine Disorders: No HEENT History of HEENT Disorders: Yes (dentures) HEENT Disorders: Cataract, Macular Degeneration Cancer History of Cancer: No Psychosocial History of Psychiatric Problem: No Integumentary History of Skin or Integumenta: No Blood Transfusions History of Blood Disorders: No Family Medical History Significant Family History: Cancer, Hypertension Family Medial History: Alcoholism G8 BROTHER G8 SISTER Colon cancer G8 SISTER Completed stroke 19 FATHER G8 BROTHER Diabetes mellitus 19 MOTHER Fibrocystic disease of breast Hypertension 19 FATHER 19 MOTHER G8 BROTHER G8 SISTER Respiratory disorder G8 BROTHER (lung ca) Review of Systems-General Constitutional: No chills, No diaphoresis; weakness EENTM: No eye pain, No mouth pain, No epistaxis, No throat pain, No throat swelling Respiratory: No cough, No dyspnea on exertion, No hemoptysis Cardiovascular: No chest pain; Hx of Intervention; No palpitations Gastrointestinal: No abdominal pain; constipation; No nausea, No vomiting Genitourinary: No dysuria, No hematuria; hesitancy Musculoskeletal: back pain, joint swelling, muscle pain, muscle stiffness Skin: No change in color, No change in hair/nails Psychiatric/Neurological: Denies Anxiety, Denies Depressed, Denies Headache, Denies Seizure Other pt denies any abnormal bruising or bleeding Physical Exam-General Problems Physical Exam Vital Signs Vital Signs - First Documented 12/08/17 12/08/17 07:40 16:08 Temp 98.1 Pulse 59 Resp 16 B/P (MAP) 167/71 (103) Pulse Ox 93 O2 Delivery Room Air O2 Flow Rate 3.00 Capillary Refill : General Appearance: WD/WN, no apparent distress Eyes: Bilateral Eye PERRL, Bilateral Eye EOMI HEENT: pharynx normal; No scleral icterus (R), No scleral icterus (L) Neck: non-tender, supple, normal inspection Respiratory: chest non-tender, lungs clear, normal breath sounds, no respiratory distress, no accessory muscle use Cardiovascular: regular rate, rhythm, no edema, no murmur Gastrointestinal: normal bowel sounds, soft, no organomegaly, no pulsatile mass , tenderness (very mild with deep palpation) Extremities: normal range of motion, non-tender, normal inspection, no pedal edema, no calf tenderness, normal capillary refill Neurologic/Psychiatric: social work therapist II-XII nml as tested, no motor/sensory deficits, alert, oriented x 3 Skin: normal color, warm/dry Lymphatic: no adenopathy (neck, axilla or groin) Data Review Radiology Date of Exam: 12/10/17 ABDOMEN, FLAT & UPRIGHT/DECUB INDICATION: No bowel movement since back surgery 2 days ago.. TECHNIQUE: Supine and upright view of the abdomen 12:06 PM CORRELATION STUDY: 12/09/2017 FINDINGS: Posterior fusion hardware decompressive laminectomies is again demonstrated. This includes transpedicular screws and connecting rods at L2-L3, L4-5 levels. Overlying skin coco are present. Findings compatible with endovascular stents within the expected location of the iliac arteries. There is moderate severity fecal retention. Slight disproportionate proximal colon fecal loading is noted. Definitive large fecal impaction however is not otherwise suggested. A few gas filled loops of bowel are noted without evidence to suggest high degree bowel obstruction. IMPRESSION: 1. Moderate severity fecal retention with evidence for large fecal impaction or otherwise bowel obstruction. Dictated by: Dictated on workstation # [id number] Dict: 12/10/17 1403 Trans: 12/10/17 1500 Interpreted by: GABRIEL KIM DO Electronically signed by: GABRIEL KIM DO 12/10/17 1500 Assessment/Plan Assessment/Plan Assessment/Plan Fecal Retention Constipation ?? Maria G Pt got some relief with enema, plan is to give Lactulose, Miralex and other laxatives tonight (per IM). Pt should get some more relief; he was also told to ambulate and chew gum, because both of these will help with return of bowel function. Will monitor and see pt tomorrow, he may need another Abdominal X-ray in am. Thank you for this consult. Lumbar stenosis with Radiculopathy S/P L2-3 DLIF, PSF with laminectomy Clinical Quality Measures DVT/VTE Risk/Contraindication: Risk Factor Score Per Nursin RFS Level Per Nursing on Admit: 4+=Very High GLENDY DURAN DO Dec 10, 2017 17:16
--- NOTE | 2017-12-10 17:20 | Progress Note-Urology ---
Progress Note-Urology Progress Notes/Assess & Plan Progress/Assessment & Plan VOIDING WELL GOOD AMOUNTS NO PROBLEMS. WE WILL SEE PRN Final Diagnosis URINE RETENTION (RESOLVED) RUSSELL CHAN MD Dec 10, 2017 5:20 pm
[2017-12-10] MEDS: TAMSULOSIN 0.4 MG (FLOMAX) CAP PO SCH (17:23)
[2017-12-11] MEDS: oxyCODONE/APAP 5/325MG (PERCOCET 5) TABLET PO PRN ×3 (01:11→09:37)
[2017-12-11] MEDS: NS IV 1000 ML 1,000 ML IV SCH (01:11)
[2017-12-11] MEDS: METOCLOPRAMIDE INJ 10 MG/2 ML (REGLAN) IV SCH ×2 (02:45→09:37)
[2017-12-11 04:03] VITALS: BP 155/70
[2017-12-11] MEDS: VITAMIN D3 5,000 UNITS (CHOLECALCIFEROL ) CAPSULE PO SCH (05:15)
[2017-12-11] MEDS: BETHANECHOL 25 MG (URECHOLINE) TAB PO SCH ×2 (05:15→12:29)
--- NOTE | 2017-12-11 06:40 | Progress Note (SOAP) ---
Subjective Date Seen by a Provider: Dec 11, 2017 Time Seen by a Provider: 06:39 Subjective/Events-last exam SOBIA. Doing well. wants to go home. enema yesterday. Objective Exam Vital Signs Date Time Temp Pulse Resp B/P (MAP) Pulse Ox O2 Delivery O2 Flow Rate FiO2 12/11/17 04:03 99.3 90 20 155/70 (98) 93 Room Air 12/10/17 23:50 99.5 110 20 142/63 (89) 92 Room Air 12/10/17 21:00 Room Air 12/10/17 19:30 99.0 106 20 172/78 (109) 93 Room Air 12/10/17 15:47 98.4 92 16 137/61 (86) 92 Room Air 12/10/17 11:56 99.1 100 18 147/65 (92) 92 Room Air 12/10/17 09:07 Room Air 12/10/17 08:00 98.5 88 18 171/77 (108) 92 Room Air I & O 12/11/17 07:00 Intake Total 3770 ml Output Total 2625 ml Balance 1145 ml Capillary Refill : General Appearance: No Apparent Distress Extremity: Other (wound CDI, 5/5 motor erin LE) Assessment/Plan Assessment/Plan Assess & Plan/Chief Complaint s/p DLIF extension PSIF PLAN: regular diet scd prophylaxis ileus: possible enema today stable from spine standpoint plan to vt home today f/u in 2 weeks in [place] Clinical Quality Measures DVT/VTE Risk/Contraindication: Risk Factor Score Per Nursin RFS Level Per Nursing on Admit: 4+=Very High JESUSITA LOYA DO Dec 11, 2017 06:40
[2017-12-11 08:00] VITALS: BP 189/84
--- NOTE | 2017-12-11 08:04 | Progress Note-Hospitalist ---
PALOMA [employer] MEDICAL STUDENT 12/11/17 0804: Subjective HPI/CC On Admission Date Seen by Provider: Dec 11, 2017 Time Seen by Provider: 07:20 Interviewed and examined patient PCP Alisha Renteria No BM for 3 days so will start meds. Subjective/Events-last exam Pt had 2 BMs yesterday after enema. States that he is still not passing much gas. Would like another enema before leaving today, Urinating is difficult in bed, but he has no concerns about this. Pts pain today is 5/10 in his back. Little pain in his abdomen. Pt ambulated down the goel a couple times yesterday. Using incentive spirometer regularly. Toleratin clear liquid diet. Focused Exam Respiratory: Chest Non Tender, Lungs Clear, Normal Breath Sounds Cardiovascular: Regular Rate, Rhythm, No Edema, No Murmur Skin: normal color, warm/dry Objective Exam Vital Signs Vital Signs Date Time Temp Pulse Resp B/P (MAP) Pulse Ox O2 Delivery O2 Flow Rate FiO2 12/11/17 04:03 99.3 90 20 155/70 (98) 93 Room Air 12/09/17 12:00 3.00 Capillary Refill : General Appearance: No Apparent Distress, WD/WN Gastrointestinal: Normal Bowel Sounds, Non Tender, Distended Results/Procedures Lab Patient resulted labs reviewed. Assessment/Plan Assessment and Plan Assess & Plan/Chief Complaint 82 year old male with history of HTN, HLD, PVD, GERD, BPH, and spinal stenosis s /p decompression and fusion of L2-L3. Pain control -Flexeril, Percocet, and Fentanyl PRN Post-Op Ileus: KUB showed moderate fecal load -Currently receiving bisacodyl, colace, senna. Had an enema yesterday. Took miralax and lactulose. -Will discuss repeating enema before discharge BPH/Retention -Continue tamsulosin, bethanechol, Proscar -Follow up with Dr. 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 HLD -Holding WINDOWS DESKTOP ENGINEER simvastatin DVT PPx -SCDs Dispo: Per primary Diagnosis/Problems Diagnosis/Problems (1) Ileus Status: Resolved (2) Hypertension Status: Chronic Qualifiers: Hypertension type: essential hypertension Qualified Codes: I10 - Essential (primary) hypertension (3) PVD (peripheral vascular disease) Status: Chronic (4) Hyperlipidemia Status: Chronic Qualifiers: Hyperlipidemia type: mixed hyperlipidemia Qualified Codes: E78.2 - Mixed hyperlipidemia (5) Urinary retention Status: Resolved (6) Lumbar stenosis Status: Chronic Qualifiers: Neurogenic claudication status: without neurogenic claudication Qualified Codes: M48.061 - Spinal stenosis, lumbar region without neurogenic claudication Clinical Quality Measures DVT/VTE Risk/Contraindication: Risk Factor Score Per Nursin RFS Level Per Nursing on Admit: 4+=Very High KARRIE REYNA DO 12/11/17 1155: Subjective Subjective/Events-last exam Patient had enormous results after SSE and patient is ready to go. Objective Exam General Appearance: No Apparent Distress, WD/WN Respiratory: Chest Non Tender, Lungs Clear, Normal Breath Sounds, No Accessory Muscle Use, No Respiratory Distress Cardiovascular: No Edema, No Gallop, No JVD, No Murmur, Normal Peripheral Pulses, Irregularly Irregular Assessment/Plan Assessment and Plan Assess & Plan/Chief Complaint DC home with Diagnosis/Problems Diagnosis/Problems (1) Ileus Status: Resolved (2) Hypertension Status: Chronic Qualifiers: Hypertension type: essential hypertension Qualified Codes: I10 - Essential (primary) hypertension (3) PVD (peripheral vascular disease) Status: Chronic (4) Hyperlipidemia Status: Chronic Qualifiers: Hyperlipidemia type: mixed hyperlipidemia Qualified Codes: E78.2 - Mixed hyperlipidemia (5) Urinary retention Status: Resolved (6) Lumbar stenosis Status: Chronic Qualifiers: Neurogenic claudication status: without neurogenic claudication Qualified Codes: M48.061 - Spinal stenosis, lumbar region without neurogenic claudication Supervisory-Addendum Brief Supervisory Addendum Participated in pt care: history Personally performed: exam E&M service: agree Notes: I personally have seen and evaluated the patient and performed the physical exam. I agree with the documented assessment and plan. PALOMA [employer] MEDICAL STUDENT Dec 11, 2017 08:04 KARRIE REYNA DO Dec 11, 2017 11:55
--- NOTE | 2017-12-11 09:20 | Physical Therapy Daily Note ---
PT Daily Note-Current Subjective Patient agrees to PT. He reports he is going home today. Pain Numeric Pain Scale: 5-Moderate Pain Location: Lower Location Body Site: Back Pain Description: Acute Mental Status Patient Orientation: Normal For Age Attachments: IV Transfers Functional [place] Measure 0=Not Assessed/NA 4=Minimal Assistance 1=Total Assistance 5=Supervision or Setup 2=Maximal Assistance 6=Modified [place] 3=Moderate Assistance 7=Complete IndependenceIRFPAI Quality Coding Scale 6 Independent with activity with or without an assistive device 5 Patient requires set up or clean up by helper. Patient completes activity by themselves 4 Supervision or touching assist (CGA). [place] provide cues , steadying assist 3 The helper provides less than half the effort to complete the activity 2 The helper provides more than half the effort to complete the activity 1 Dependent. The helper does all the effort to complete an activity 7 Patient refused to complete or attempt activity 9 The patient did not perform the activity before the current illness or injury 88 Not attempted due to Medical conditions or safety concerns Transfers (B, C, W/C) (FIM): 6 Scootin Rollin Supine to/from Sit: 6 Sit to/from Stand: 6 Weight Bearing Right Lower Extremity: Right Full Weight Bearing Left Lower Extremity: Left Full Weight Bearing Gait Training Gait (FIM): 6 Distance (FIM): 3=150 ft Distance: 600' Gait Level of Assist: 6 Gait Assistive Device: FWW safe and functional Assessment Patient has progressed with treatment plan and is safe to return to home with family, from a PT standpoint. PT Short Term Goals Short Term Goals Time Frame: Dec 13, 2017 Transfers (B,C,W/C) (FIM): 6 Gait (FIM): 6 Gait Level of Assist: 6 Gait Assistive Device: None, FWW PT Plan Treatment/Plan Treatment Plan: Discontinue PT, goals met Treatment Plan: Bed Mobility, Education, Functional Activity Michi, Functional Strength, Gait, Safety, Therapeutic Exercise Treatment Duration: Dec 13, 2017 Frequency: BID until patient is detached from IV Estimated Hrs Per Day: .5 hour per day Patient and/or Family Agrees t: Yes Time/GCodes Time In: 858 Time Out: 909 Total Billed Treatment Time: 11 Total Billed Treatment 1 visit FA 11 min BROOK LISA PT Dec 11, 2017 09:20
[2017-12-11] MEDS: FAMOTIDINE 20 MG (PEPCID) TABLET PO SCH (09:34)
[2017-12-11] MEDS: amLODIPine 10 MG (NORVASC) TAB PO SCH (09:34)
[2017-12-11] MEDS: DOCUSATE SODIUM 100 MG (COLACE) CAP PO SCH (09:34)
[2017-12-11] MEDS: FINASTERIDE (PROSCAR) 5 MG TAB PO SCH (09:36)
[2017-12-11] MEDS: SENNA W/DOCUSATE (SENOKOT S) TABLET PO SCH (09:36)
[2017-12-11] MEDS: POLYETHYLENE GLYCOL 17 GM (MIRALAX) PACK PO SCH (09:36)
[2017-12-11] MEDS: LACTULOSE SYRUP 10GM/15ML (ENULOSE) 30ML UDC PO SCH (09:36)
[2017-12-11] MEDS: PHENAZOPYRIDINE 100 MG (PYRIDIUM) TABLET PO SCH (09:36)
[2017-12-11] MEDS ORDERED: LACT20SO2 PO (10:19)
[2017-12-11] MEDS ORDERED: Finasteride PO (10:19)
[2017-12-11] MEDS ORDERED: TAMS0.4C98 PO (10:19)
[2017-12-11] MEDS ORDERED: BETH25TA PO (10:19)
--- NOTE | 2017-12-11 10:22 | D/C HH Face to Face Order ---
D/C Face to Face Orders Instructions for Patient Patient Instructions/FollowUp: Alisha Renteria in [address] Scott as scheduled Physician to follow Patient: Alisha Myra Discharge Diet for Home: Cardiac Diet Patient Problems: Lumbar spine surgery POD # 3 PVD CAD Severe constipation Patient Data-Allergies,Ht & Wt Patient Allergies: Coded Allergies: No Known Drug Allergies (Unverified , 12/02/17) Height (Feet): 6 Height (Inches): 0.00 Weight (Pounds): 161 Weight (Ounces): 0.0 Home Health Need/Face to Face Date of Face to Face: Dec 11, 2017 Clinical Findings: Generalized weakness and fatigue, Pain with ambulation, Unsteady gait I have seen Pt [id number]: Yes Discharged To: Home Diagnosis/Conditions: Lumbar spine surgery POD # 3 PVD CAD Severe constipation Patient is Homebound due to: [place] fall risk due to instabilty, Pain w/ ambulation Homebound Status Due to the above stated illness, injury or surgical procedure (medical condition or diagnosis) and associated clinical findings, the patient is homebound because of his/her inability to leave home except with aid of a supportive device and/or person AND leaving the home requires a considerable and taxing effort or is medically contraindicated. Pt req the following assistanc: [facility] Nursing Orders Home Health Services Order: Nursing Services, Universal Grinder Set Up Operator-Evaluate & Treat, Physical Therapy-Evaluate & Treat Home Health Infusion Therapy Line Start Date: Dec 08, 2017 Line Start Time: 0845 Line Type: Peripheral IV Site Location: Forearm Certify Stmt I certify that this patient is under my care and that I, a nurse practitioner or a physician; a appeals assistant working with me, had a face to face encounter that - meets the physician face to face encounter requirements with this patient as dated. KARRIE REYNA DO Dec 11, 2017 10:22
[2017-12-11] MEDS ORDERED: OXYC-464 PO (10:39)
[2017-12-11 11:15] LABS: BASOPHILS % (AUTO) 0 % (0-10); EOSINOPHILS % (AUTO) 0 % (0-10); HEMATOCRIT 37 % (40-54); HEMOGLOBIN 12.9 G/DL (13.3-17.7); LYMPHOCYTES # (AUTO) 1.1 X 10^3 (1.0-4.0); LYMPHOCYTES % (AUTO) 9 % (12-44); MEAN CORPUSCULAR HEMOGLOBIN 32 PG (25-34); MEAN CORPUSCULAR HGB CONC 35 G/DL (32-36); MEAN CORPUSCULAR VOLUME 91 FL (80-99); MONOCYTES # (AUTO) 0.9 X 10^3 (0.0-1.0); MONOCYTES % (AUTO) 8 % (0-12); NEUTROPHILS # (AUTO) 9.8 X 10^3 (1.8-7.8); NEUTROPHILS % (AUTO) 83 % (42-75); PLATELET COUNT 281 10^3/uL (130-400); RED BLOOD COUNT 4.03 10^6/uL (4.35-5.85); RED CELL DISTRIBUTION WIDTH 14.5 % (10.0-14.5); WHITE BLOOD COUNT 11.8 10^3/uL (4.3-11.0)
[2017-12-11 11:37] LABS: ALANINE AMINOTRANSFERASE 11 U/L (0-55); ALBUMIN 3.9 GM/DL (3.2-4.5); ALKALINE PHOSPHATASE 70 U/L (40-136); BILIRUBIN,TOTAL 0.8 MG/DL (0.1-1.0); BUN/CREATININE RATIO 11; CALCIUM 9.6 MG/DL (8.5-10.1); CARBON DIOXIDE 23 MMOL/L (21-32); CHLORIDE 105 MMOL/L (98-107); CREATININE SERUM 0.87 MG/DL (0.60-1.30); GFR ESTIMATED > 60; GLUCOSE 148 MG/DL (70-105); POTASSIUM 3.1 MMOL/L (3.6-5.0); SODIUM 139 MMOL/L (135-145); TOTAL PROTEIN 7.1 GM/DL (6.4-8.2)
--- NOTE | 2017-12-11 11:44 | Progress Note ---
Subjective Time Seen by a Provider: 10:15 Subjective/Events-last exam Pt seen and examined, states he hasn't had a BM and his belly is bigger "but, they are about to fix it". He got lactulose and other meds last night......none have worked yet. He states he did walk around yesterday and has started chewing gum. Review of Systems General: No Chills, No Night Sweats Pulmonary: No Dyspnea, No Cough Cardiovascular: No: Chest Pain, Palpitations Gastrointestinal: No: Nausea, Vomiting Objective Exam Vital Signs Date Time Temp Pulse Resp B/P (MAP) Pulse Ox O2 Delivery O2 Flow Rate FiO2 12/11/17 04:03 99.3 90 20 155/70 (98) 93 Room Air 12/10/17 23:50 99.5 110 20 142/63 (89) 92 Room Air 12/10/17 21:00 Room Air 12/10/17 19:30 99.0 106 20 172/78 (109) 93 Room Air 12/10/17 15:47 98.4 92 16 137/61 (86) 92 Room Air 12/10/17 11:56 99.1 100 18 147/65 (92) 92 Room Air I & O 12/11/17 07:00 Intake Total 3770 ml Output Total 2625 ml Balance 1145 ml Capillary Refill : General Appearance: No Apparent Distress, WD/WN HEENT: PERRL/EOMI, Pharynx Normal Neck: Full Range of Motion, Normal Inspection, Non Tender, Supple, Carotid Bruit Respiratory: Chest Non Tender, Lungs Clear, Normal Breath Sounds, No Accessory Muscle Use, No Respiratory Distress Cardiovascular: Regular Rate, Rhythm, No Edema, No Murmur Gastrointestinal: normal bowel sounds, soft, no organomegaly, no pulsatile mass , distended (bigger than yesterday), tenderness (very mild with deep palpation) Extremity: Other (wound CDI, 5/5 motor erin LE) Neurologic/Psychiatric: Alert, Oriented x3, No Motor/Sensory Deficits, Normal Mood/Affect, workers compensation specialist II-XII Norm as Tested Skin: Normal Color, Other (Dressing CDI) Results Lab Laboratory Tests 12/11/17 10:56: White Blood Count 11.8H, Red Blood Count 4.03L, Hemoglobin 12.9L, Hematocrit 37L , Mean Corpuscular Volume 91, Mean Corpuscular Hemoglobin 32, Mean Corpuscular Hemoglobin Concent 35, Red Cell Distribution Width 14.5, Platelet Count 281, Mean Platelet Volume 10.0, Neutrophils (%) (Auto) 83H, Lymphocytes (%) (Auto) 9L , Monocytes (%) (Auto) 8, Eosinophils (%) (Auto) 0, Basophils (%) (Auto) 0, Neutrophils # (Auto) 9.8H, Lymphocytes # (Auto) 1.1, Monocytes # (Auto) 0.9, Eosinophils # (Auto) 0.0, Basophils # (Auto) 0.0, Sodium Level 139, Potassium Level 3.1L, Chloride Level 105, Carbon Dioxide Level 23, Anion Gap 11, Blood Urea Nitrogen 10, Creatinine 0.87, Estimat Glomerular Filtration Rate > 60, BUN/ Creatinine Ratio 11, Glucose Level 148H, Calcium Level 9.6, Corrected Calcium 9.7, Total Bilirubin 0.8, Aspartate Amino Transf (AST/SGOT) 17, Alanine Aminotransferase (ALT/SGPT) 11, Alkaline Phosphatase 70, Total Protein 7.1, Albumin 3.9 Assessment/Plan Assessment/Plan Assessment/Plan Constipation possible [place] Pt is getting an enema and this helped him yesterday, my concern is ABD x-ray seemed to show a lot of stool on the right side as well and the enema will not get to right side. As long as pt is having BM's at home; even with some Miralax or Mg Citrate etc, then he should be ok. However, if they are not working he needs to see either IM, Ortho or can see me. Clinical Quality Measures DVT/VTE Risk/Contraindication: Risk Factor Score Per Nursin RFS Level Per Nursing on Admit: 4+=Very High GLENDY DUARN DO Dec 11, 2017 11:44
[2017-12-11 11:53] VITALS: BP 143/66
--- NOTE | 2017-12-19 15:44 | OPERATIVE REPORT ---
DATE OF SERVICE: 12/08/2017 ADDENDUM Please scroll down to PROCEDURES PERFORMED: 3. Application of posterior instrumentation L2-L3. 4. There should also be a separate procedure posterior spinal fusion L2-L3. DESCRIPTION OF PROCEDURE: Scroll down to the sentence that says, I then replaced the rods with the longer rods. Please add a sentence at this point that says, The rods were connected to screws from L2, L3, L4 and L5. Also scroll down to the upper aligned area and fill that in the words, facetectomy. Please indicate in here that the only new pedicle screws placed were at L2. Job ID: [id number] DocumentID: [id number] Dictated Date: 12/19/2017 10:10:38 Filleter Date: 12/19/2017 15:43:24 Dictated By: JESUSITA LOYA DO
--- NOTE | 2017-12-23 15:53 | Discharge Summary ---
Diagnosis/Chief Complaint Date of Admission Dec 08, 2017 at 07:36 Date of Discharge Dec 11, 2017 at 12:38 Discharge Date: Dec 11, 2017 Discharge Time: 12:00 Admission Diagnosis Admission Diagnosis stenosis Discharge Diagnosis same Reason Hospital Visit Adjacent segment disease with stenosis Discharge Summary Discharge Physical Examination Allergies: Coded Allergies: No Known Drug Allergies (Unverified , 12/02/17) Hospital Course underwent DLIF surgery wo complication. admitted for pain control. Made good progress in PT. GS consulted for constipation. stable for discharge home on POD 3 Other pending tests sfds Discharge Instructions to patient/family Please see electronic discharge instructions given to patient. Discharge Medications Reviewed and agree with Discharge Medication list on patient's Discharge Instruction sheet Clinical Quality Measures DVT/VTE Risk/Contraindication: Risk Factor Score Per Nursin RFS Level Per Nursing on Admit: 4+=Very High JESUSITA LOYA DO Dec 23, 2017 15:53
== END 2017-12-11 12:38 | disposition home health service (06) | DRG 454 ==
LOC: 4TH 07:36 → SURG 07:37 → EDSTATUS 11:15 → 4TH 14:51
PROVIDERS: ADMIT Orthopaedic Surgery; ATTEND Orthopaedic Surgery
PROC: 0ST20ZZ Resection of Lumbar Vertebral Disc, Open Approach (ICD-10-PCS; 2017-12-08)
PROC: 0SP004Z Removal of Internal Fixation Device from Lumbar Vertebral Joint, Open Approach (ICD-10-PCS; 2017-12-08)
PROC: 0SG00A0 Fusion of Lumbar Vertebral Joint with Interbody Fusion Device, Anterior Approach, Anterior Column, Open Approach (ICD-10-PCS; principal; 2017-12-08 10:19)
PROC: 0SG0071 Fusion of Lumbar Vertebral Joint with Autologous Tissue Substitute, Posterior Approach, Posterior Column, Open Approach (ICD-10-PCS; 2017-12-08 10:19)
DX: M48.061 Spinal stenosis, lumbar region without neurogenic claudication (principal); K91.89 Other postprocedural complications and disorders of digestive system; K56.7 Ileus, unspecified; M54.16 Radiculopathy, lumbar region; M43.16 Spondylolisthesis, lumbar region; M51.36 Other intervertebral disc degeneration, lumbar region; I10 Essential (primary) hypertension; G62.9 Polyneuropathy, unspecified; N40.1 Benign prostatic hyperplasia with lower urinary tract symptoms; R33.8 Other retention of urine; M19.91 Primary osteoarthritis, unspecified site; K21.9 Gastro-esophageal reflux disease without esophagitis; E78.2 Mixed hyperlipidemia; I73.9 Peripheral vascular disease, unspecified; H35.30 Unspecified macular degeneration; K59.01 Slow transit constipation; D72.823 Leukemoid reaction; Z79.02 Long term (current) use of antithrombotics/antiplatelets; Z79.01 Long term (current) use of anticoagulants; Z86.73 Personal history of transient ischemic attack (TIA), and cerebral infarction without residual deficits; Z95.828 Presence of other vascular implants and grafts; Z87.891 Personal history of nicotine dependence
CPT/HCPCS: 36415; 72100; 74019; 80053; 85025; 85027; 85610; 86850; 86900; 86901; 94664